=== PATIENT | female | born 1990 | race Caucasian/White ===

== ENCOUNTER 2017-08-21 06:00 | Inpatient (IN) ==
[2017-08-21] MEDS ORDERED: Famotidine 20 MG/2 ML VIAL IVP PRN (06:17)
[2017-08-21] MEDS ORDERED: Naloxone 0.4 MG/ML INJ IVP PRN ×3 (06:17→23:41)
[2017-08-21] MEDS ORDERED: Ondansetron 4 MG/2 ML VIAL IVP PRN ×2 (06:17→16:40)
[2017-08-21] MEDS ORDERED: *HR* Nalbuphine 20 MG/ML AMPUL IVP PRN (06:17)
[2017-08-21] MEDS ORDERED: Lidocaine 1% 20 ML MDV INFILT PRN (06:17)
--- NOTE | 2017-08-21 06:17 | OB/GYN History & Physical ---
Date of Encounter: 08/21/17 Time of Encounter: 06:30 Assessment and Plan (1) Rastafari ancestry Current visit: Yes Status: Acute (2) Short interval between pregnancies affecting in third trimester, antepartum Current visit: Yes Status: Acute (3) Elective induction of labor planned Current visit: Yes Status: Acute Plan: - admit to L&D - heart monitoring - reactive - CBC ordered - expectant management - plan for morel and cytotec - epidural if patient desires (4) 40 weeks gestation of Current visit: Yes Status: Acute History of Present Illness Chief complaint: induction of labor HPI: Ms. Guerra is a 27 year old female at 40+2 weeks presented to L&D for induction of labor. complicated by hx of hemorrhage, hx of extensive repair with a 8lb 14oz baby, and Rastafari, and short term interval between previous (14 mo). Reports good movement. Patient denies regular contractions, leakage of fluid, vaginal bleeding. Patient has seen multiple providers. Last office visit patient was 2cm. Denies fevers, chills, headaches, changes in vision, abdominal pain, dysuria, or edema. PNL: Blood type A neg, RPR neg, RI, HBsAg neg, HIV neg, GBS neg Past Med Surg Social Fam HX - Family History Mother Adopted: No Living Status: Still Living Hx Family Cardiac Disorders: No Hx Family Respiratory Disorders: No Hx Family Cancer: No Hx Family GI Disorders: No Hx Family Genitourinary Disorders: No Hx Family Endocrine Disorder: No Hx Family Musculoskeletal Disorders: No Hx Family Neuromuscular Disorders: No Hx Family Neurologic Disorders: No Hx Family HEENT Disorders: No Hx Family Autoimmune Disorders: No Hx Family Reproductive Disorders: No Hx Family Psychosocial Disorders: No Hx Family Medical Disorders: No Obstetrical History - Pregnancies : 5 Para: 3 Term: 3 : 0 Ab's: 0 Livin - History/Complications History/Complications: Total pregnancies 4. Total living children 3. # 1: 02/2013, normal spontaneous vaginal delivery (), 40wks, male , no complications. # 2: 08/2014, normal spontaneous vaginal delivery (), 40wks, male , no complications. # 3 03/2016, normal spontaneous vaginal delivery (), 40wks, male, no complications. Medications and Allergies Vit/Iron Fumarate/FA [ Tablet] 1 each PO DAILY 08/21/17 [ History] 3 Allergy/AdvReac Type Severity Reaction Status Date / Time No Known Allergies Allergy Verified 08/21/17 07:33 Review of System OB All systems PM: reviewed and no additional remarkable complaints except as stated Exam - Constitutional Constitutional: well developed, well nourished, no acute distress, average body habitus - HEENT HEENT: Normocephaly, Mucus Membranes Moist - Neck Neck exam: full ROM - Lungs Respiratory exam: CTAB - Cardiovascular Cardiovascular exam: RRR - Abdomen Abdomen: Present: bowel sounds normal, gravid. Absent: non tender - Extremities Extremities exam: normal capillary refill, normal inspection - Vagina Vagina: Present: normal moisture - Cervix Dilation: 1 (1-2 cm per nursing) - Uterus Uterus exam: Present: normal size - Anus/Rectum Anus/Rectum: Present: normal perianal skin Results Result Diagrams: 08/21/17 07:01 All other labs normal. - Attending Attestation I examined this patient and my medical decision-making was reviewed with the Resident Physician. I agree with the documented findings, disposition and treatment plan as described. Braden Betancur CNM
[2017-08-21 07:14] LABS: Basophils % 0.3 %; Eosinophils # 0.1 K/mcL (0.0-0.6); Hematocrit 34.4 % (35.3-44.9); Hemoglobin 11.4 g/dL (11.5-15.4); Immature Granulocytes % 1.6 % (0-4); Lymphocytes # 1.8 K/mcL (0.6-4.6); Lymphocytes % 20.4 %; Mean Corpuscular HGB Conc 33.1 g/dL (31.6-35.5); Mean Corpuscular Hemoglobin 26.8 pg (28.0-33.3); Mean Corpuscular Volume 80.9 fL (83.0-100.0); Mean Platelet Volume 10.1 fL (9.4-12.4); Monocytes # 0.7 K/mcL (0.0-1.3); Monocytes % 7.8 %; Platelet Count 243 K/mcL (140-400); Red Blood Count 4.25 M/mcL (3.82-4.97); Red Cell Distribution Width 13.9 % (11.5-14.5); Segmented Neutrophils % 68.9 %
[2017-08-21 07:57] LABS: Amphetamine Screen,Urine Negative ng/mL (Cutoff=1000); Barbiturate Screen,Urine Negative ng/mL (Cutoff=200); Benzodiazepines Screen,Urine Negative ng/mL (Cutoff=200); Cannabinoid Screen,Urine Negative ng/mL (Cutoff = 50); Cocaine Screen,Urine Negative ng/mL (Cutoff= 300); Opiate Screen,Urine Negative ng/mL (Cutoff=300); Phencyclidine Screen,Urine Negative ng/mL (Cutoff=25)
[2017-08-21] MEDS: miSOPROStol 25 MCG TABLET PO PRN ×2 (08:34→13:23)
--- NOTE | 2017-08-21 09:23 | OB Labor Progress Note ---
Date of Encounter: 08/21/17 Time of Encounter: 09:21 Labor Progress Note - Subjective Subjective: Patient resting comfortably in bed. States she can feel contractions but they are tolerable - Vital Signs Vital Signs: VSS - Cervix Cervix: 2-3/70/-1 mid position. - Heart Tones Heart Tones: 130 moderate variability with 15 x 15 accels. - [place]: Contractions irregular - Interventions Interventions: Bryson bulb with 40mL placed in cervix without difficulty. Patient and fetus tolerated well. - Plan Plan: Continue routine labor management Patient may have epidural/nubain upon request for pain control Anticipate vaginal delivery GBS negative Consider AROM /Pitocin for augmentation Patient typed and crossed for 2 units pRBCs on hold due to hx of PPH. POC per consult with Dr Colon.
--- NOTE | 2017-08-21 10:59 | Anesthesia Evaluation PreOp ---
Date of Encounter: 08/21/17 Time of Encounter: 10:56 - Past History Planned Operation: Potential MOHSEN Cardiac History: Denies any Significant Hx Pulmonary History: Denies Any Significant HX BOILER TUBE REAMER History: Denies Any Significant HX Other Medical History: Denies Any Significant HX Anesthesia History: No Prior Anesthetic Complications, Past Anesthesia (NONE, no family history of anesthesia complications) : Yes Alcohol Use: none Drug use: none Medications and Allergies Vit/Iron Fumarate/FA [ Tablet] 1 each PO DAILY 08/21/17 [ History] 3 Allergy/AdvReac Type Severity Reaction Status Date / Time No Known Allergies Allergy Verified 08/21/17 07:33 - Meds/Allergy Pre-op Review Medications Reviewed: Yes Allergies Reviewed: Yes Beta Blockers on Current Med List: No Anesthesia Results - Labs 08/21/17 07:01 Anesthesia Exam BP 122/75 P 90 T 97.5 R 18 Height: 5'3" Weight: 75kg NPO (# of Hours): 12 hrs solids 1hr clears Pain Scale: 2 Pain Scale Used: Numeric (1 - 10) - HEENT Pupil (Motor): Pupils equal Mallampati: II Teeth: Normal Oral Opening: Greater than 3 - BOILER TUBE REAMER LOC: Oriented BOILER TUBE REAMER Motor: Normal RUE, Normal LUE, Normal RLE, Normal LLE, Normal Face BOILER TUBE REAMER Sensory: Normal: RUE, LUE, RLE, LLE, Face - Cardiac Rhythm: Regular Murmur: None JVD: No Carotid Bruit: No - Pulmonary Breath Sounds: bilateral Clear Respiratory Effort: Symmetrical Anesthesia Assess/Plan ASA Score: 2 Modified Katerin Scale for Level of Consciousness: Cooperative, oriented, and tranquil Anesthetic Plan: Regional Autologous Blood: No Monitoring Plan: Standard Monitors Recovery Plan: Other
[2017-08-21] MEDS ORDERED: Ringers Solution, Lactated 1,000 ML ONE (16:14)
[2017-08-21] MEDS ORDERED: Ringers Solution, Lactated 1,000 ML IVC SCH (16:15)
--- NOTE | 2017-08-21 16:17 | OB Labor Progress Note ---
Date of Encounter: 08/21/17 Time of Encounter: 16:14 Labor Progress Note - Subjective Subjective: Patient resting in rocking chair comfortably - Vital Signs Vital Signs: VSS - Cervix Cervix: 6/70/-1 - Heart Tones Heart Tones: 140's moderate variability and 15 x 15 accels. - [place]: Contractions every 2-10 minutes - Interventions Interventions: AROM for moderate amount of clear fluid - Plan Plan: Continue routine labor management Patient may have epidural and/or nubain upon request GBS negative Consider pitocin if needed for adequate labor Anticipate vaginal delivery POC per consult with Dr Colon.
[2017-08-21] MEDS ORDERED: EPHEDrine 50 MG/ML VIAL IVP PRN (16:40)
[2017-08-21] MEDS ORDERED: Bupivacaine-MPF 0.25% 10 ML VIAL EP ONE (16:40)
[2017-08-21] MEDS ORDERED: *HR* FentaNYL (PF) 100 MCG/2 ML VIAL EP ONE (16:40)
[2017-08-21] MEDS ORDERED: Epidural Premix (fent/bupiv) 110 ML EP SCH (16:45)
[2017-08-21] MEDS ORDERED: Bupivacaine-MPF 0.25% 10 ML VIAL ONE (16:45)
[2017-08-21] MEDS ORDERED: *HR* FentaNYL (PF) 100 MCG/2 ML VIAL ONE (16:45)
[2017-08-21] MEDS ORDERED: Epidural Premix (fent/bupiv) 110 ML EP ONE (16:47)
--- NOTE | 2017-08-21 17:26 | Anesthesia Procedures ---
Date of Encounter: 08/21/17 Time of Encounter: 16:49 Procedures: Anesthesia - Epidural/Spinal Patient ID/Chart reviewed: Yes Patient examined: Yes OB Eval: Gestational age: 40 OB Eval: : 4 OB Eval: Hx Para: 3 OB Eval: Dilated at (cm): 6 OB Eval: Contractions: Non-stressed pattern Consent Obtained: Yes Supplemental Oxygen: None/Room Air Site Prep: Aseptic Technique, Sterile prep and drape, Povidone-Iodine 1% Patient position: upright Local Anesthetic: Lidocaine 1% Amount of Local Anesthetic used: 3 Touhy Needle Gauge: 18 Touhy Needle Depth (cm): 6 Catheter Depth at Skin (cm): 15 Test Dose (1.5% Lido + Epi): Volume given (mls): 3 Test Dose Result: Negative Loading Dose: 0.25% Marcaine (mls): 10 Loading Dose: Fentanyl (mcg): 100 Loading Dose Administered: Thru Catheter Infusion Med: 0.125% Bupivacaine w/ 2 mcg/ml Fentanyl Infusion Rate (mls/hr): [address]: Tegaderm Interspace Used: L4-L5 Loss of Resistance (CARLEE): Yes Blood: No CSF: No Paresthesia: No Procedure: MOHSEN placed first pass in upright position without any immediate noted complications. VSS. Vitals + FHT's: 1649 BP 121/73 P 101 R 18 1720 BP 115/76 P 92 R 16
[2017-08-21] MEDS ORDERED: Oxytocin 20 units/ LR 1000 mL 20 UNIT/1,000 ML BAG IVC ONE (19:25)
[2017-08-21] MEDS ORDERED: Oxytocin 20 units/ LR 1000 mL 20 UNIT/1,000 ML BAG IVC SCH ×2 (20:00→21:30)
[2017-08-21] MEDS ORDERED: Acetaminophen 325 MG TABLET PO PRN ×2 (21:30→23:41)
[2017-08-21] MEDS ORDERED: Ibuprofen 600 MG TABLET PO PRN ×2 (21:30→23:41)
--- NOTE | 2017-08-21 21:41 | OB/GYN Procedure Note ---
Delivery - Delivery Date: 08/21/17 Provider: Misty Betancur (Adarhs Blankenship DO PGY-1) Intrapartum events: none Delivery induction: morel, misoprostol Delivery augmentation: rupture of membranes, pitocin Delivery monitor: external FHT, external uterine Anesthesia: epidural Estimated Blood Loss: 350 - Infant (s) A Delivery Date: 08/21/17 Infant Delivery Time: 21:03 Presentation: vertex Position: CASEY Route of delivery: Gender: Male Viability: Viable Pounds: 8 Ounces: 5 Weight Gram: 3.78 kg at 1 minute: 8 at 5 mins: 9 Shoulder Dystocia: not encountered Specimens collected: cord blood Placenta: spontaneous Cord: nuchal reduced - Repair Episiotomy: none Laceration Description: Periurethral, Superficial (posterior skin) - Complications Delivery complications: none Delivery comments: of vigorous viable male infant in the CASEY position at 2103. Shoulders delivered easily. Nuchal cord x1 reduced. No meconium. No shoulder dystocia. Infant placed on mom's abdomen. Apgars 8/9 at 1 and 5 minutes. Cord double clamped and cut after pulsations ceased. Placenta delivered spontaneously at 0 appears grossly intact. 3 vessel cord. Upon perineal inspection, hemostatic periurethral/periclitoral lacerations, and superficial posterior skin laceration repaired with 4-0 vicryl. Pericare instructions given to patient. Fundus firm. Lower uterine segment was soft and due to patient's history of hemorrhage we gave methergine x1. EBL 350ml. delivery by Adarsh Blankenship DO PGY-1 and Misty ESTEVEZ. and mother stable in recovery. - Disposition Mom disposition: stable in LDR disposition: stable in LDR
[2017-08-22 06:58] LABS: Basophils % 0.1 %; Eosinophils # 0.1 K/mcL (0.0-0.6); Eosinophils % 0.4 %; Hematocrit 34.8 % (35.3-44.9); Hemoglobin 11.2 g/dL (11.5-15.4); Immature Granulocytes % 0.6 % (0-4); Lymphocytes # 1.8 K/mcL (0.6-4.6); Lymphocytes % 12.5 %; Mean Corpuscular HGB Conc 32.2 g/dL (31.6-35.5); Mean Corpuscular Hemoglobin 26.6 pg (28.0-33.3); Mean Corpuscular Volume 82.7 fL (83.0-100.0); Mean Platelet Volume 10.3 fL (9.4-12.4); Monocytes # 1.2 K/mcL (0.0-1.3); Monocytes % 8.3 %; Nucleated Red Blood Cells 0.1 /100 WBC (0); Platelet Count 261 K/mcL (140-400); Red Blood Count 4.21 M/mcL (3.82-4.97); Red Cell Distribution Width 13.8 % (11.5-14.5); Segmented Neutrophils % 78.1 %
[2017-08-22] MEDS ORDERED: Prenatal Vit/FA 1 EACH TABLET PO SCH ×2 (09:00)
--- NOTE | 2017-08-22 10:02 | Discharge Summary ---
Date of Encounter: 08/22/17 Time of Encounter: 10:00 - Discharge Diagnosis (1) Vaginal delivery Priority: Primary Status: Acute Comments: Continue routine care discharge home today follow up in 4-6 weeks (2) Breast feeding status of mother Priority: Secondary Status: Acute Comments: Lacatation support prn (3) Rh negative status during Priority: Secondary Status: Acute Comments: Both parents are RH negative (A-) and decline Rhogam evaluation Qualifiers: Trimester: unspecified trimester Qualified Code(s): O09.899 - Supervision of other high risk pregnancies, unspecified trimester - Discharge Medications Home Medications: Vit/Iron Fumarate/FA [ Tablet] 1 each PO DAILY 08/21/17 [ History] Acetaminophen [Tylenol] 650 mg PO Q6HR PRN tablet 08/22/17 [Rx] Ibuprofen [Motrin] 600 mg PO Q6HR PRN tablet 08/22/17 [Rx] Allergies/Adverse Reactions: 3 Allergy/AdvReac Type Severity Reaction Status Date / Time No Known Allergies Allergy Verified 08/21/17 07:33 Data Procedures and tests throughout hospitalization: Laboratory Tests 08/21/17 08/21/17 08/21/17 07:01 07:37 08:27 WBC 8.7 RBC 4.25 Hgb 11.4 L Hct 34.4 L MCV 80.9 L MCH 26.8 L MCHC 33.1 RDW 13.9 Plt Count 243 MPV 10.1 Immature Gran % 1.6 Seg Neutrophils % 68.9 Lymphocytes % 20.4 Monocytes % 7.8 Eosinophils % 1.0 Basophils % 0.3 Neutrophils # 6.0 Lymphocytes # 1.8 Monocytes # 0.7 Eosinophils # 0.1 Basophils # 0.0 Nucleated RBCs/100 WBC Urine Opiates Screen Negative Ur Barbiturates Screen Negative Ur Phencyclidine Scrn Negative Ur Amphetamines Screen Negative U Benzodiazepines Scrn Negative Urine Cocaine Screen Negative U Marijuana (THC) Screen Negative Blood Type A NEGATIVE Antibody Screen NEGATIVE Crossmatch See Detail 08/22/17 06:20 WBC 14.1 H D RBC 4.21 Hgb 11.2 L Hct 34.8 L MCV 82.7 L MCH 26.6 L MCHC 32.2 RDW 13.8 Plt Count 261 MPV 10.3 Immature Gran % 0.6 Seg Neutrophils % 78.1 Lymphocytes % 12.5 Monocytes % 8.3 Eosinophils % 0.4 Basophils % 0.1 Neutrophils # 11.0 H Lymphocytes # 1.8 Monocytes # 1.2 Eosinophils # 0.1 Basophils # 0.0 Nucleated RBCs/100 WBC 0.1 H Urine Opiates Screen Ur Barbiturates Screen Ur Phencyclidine Scrn Ur Amphetamines Screen U Benzodiazepines Scrn Urine Cocaine Screen U Marijuana (THC) Screen Blood Type Antibody Screen Crossmatch Labs on day of discharge: Labs from last 24 hours 08/22/17 06:20 WBC 14.1 H D RBC 4.21 Hgb 11.2 L Hct 34.8 L MCV 82.7 L MCH 26.6 L MCHC 32.2 RDW 13.8 Plt Count 261 MPV 10.3 Immature Gran % 0.6 Seg Neutrophils % 78.1 Lymphocytes % 12.5 Monocytes % 8.3 Eosinophils % 0.4 Basophils % 0.1 Neutrophils # 11.0 H Lymphocytes # 1.8 Monocytes # 1.2 Eosinophils # 0.1 Basophils # 0.0 Nucleated RBCs/100 WBC 0.1 H Date of admission: 08/21/17 06:06 Primary care physician: PCP NONE Consults: 08/21/17 21:30 Consult to Painting Trades Worker [CONS] Routine Comment: Vaginal delivery, consult needed Discharging clinician: Sarai Bridges Anticipated date of discharge: 08/22/17 - Patient Status Disposition: Home, Self-Care Condition: Good Functional capacity at discharge: independent ambulation - Discharge Instructions Follow Up With: NONE,PCP [Primary Care Provider] - Misty Betancur CNM [Advanced Practice Nurse] - - Diet and Activity Activity: increase activity as tolerated Diet: regular diet Hospital Course Reason for admission: induction of labor Delivery: Episiotomy: none Laceration: none Other procedures: none complications: none Discharge diagnosis: IUP at term delivered [place] baby: male (breast feeding) Time Attestation: Total time spent providing and/or coordinating discharge services: Time Spent: Less than 30 minutes Exam - Constitutional Vitals: Temp Pulse Resp BP Pulse Ox 98.2 F 90 16 105/63 100 08/22/17 08:00 08/22/17 08:00 08/22/17 08:00 08/22/17 08:00 08/22/17 08:00 General appearance IM: A&O X 3, pleasant, answers questions appropriately - Respiratory Respiratory exam: Present: CTAB - Cardiovascular Cardiovascular exam IM: Present: RRR, +S1, +S2 - GI/Abdominal GI/Abdominal exam IM: normal bowel sounds - Uterine Tone: Firm Uterus Position: 1 Finger Below Umbilicus, Midline - Extremities Exam Extremities exam IM: Present: full ROM, normal capillary refill, normal inspection - Neurological Exam Neurological exam: alert, oriented X3, reflexes normal
[2017-08-22] MEDS ORDERED: Methylergonovine 0.2 MG/ML AMPUL IM ONE (22:07)
[2017-08-22 23:10] VITALS: BP 104/67
== END 2017-08-22 22:08 | disposition home or self-care (01) | DRG 775 ==
LOC: 1NENULAB 06:06 → 1NENUOBS 23:38
PROVIDERS: ADMIT Advanced Practice Midwife; ATTEND Advanced Practice Midwife

== ENCOUNTER 2019-07-07 07:55 | Inpatient (IN) ==
[2019-07-07] MEDS ORDERED: Naloxone 0.4 MG/ML INJ IVP PRN ×2 (07:59→14:47)
[2019-07-07] MEDS ORDERED: Metoclopramide 10 MG/2 ML VIAL IVP PRN (07:59)
[2019-07-07] MEDS ORDERED: Famotidine 20 MG/2 ML VIAL IVP PRN (07:59)
[2019-07-07] MEDS ORDERED: Azithromycin 500 MG in 0.9 % Sodium Chloride 250 ML IVPB ONE (07:59)
[2019-07-07] MEDS ORDERED: *HR* Nalbuphine 10 MG/ML AMPUL IVP PRN (07:59)
[2019-07-07] MEDS ORDERED: miSOPROStol 25 MCG TABLET PO PRN (07:59)
[2019-07-07] MEDS ORDERED: Ondansetron 4 MG/2 ML VIAL IVP PRN ×2 (07:59→14:47)
[2019-07-07] MEDS ORDERED: Lidocaine 1% 20 ML MDV INFILT PRN (07:59)
[2019-07-07] MEDS ORDERED: Oxytocin 20 units/ LR 1000 mL 20 UNIT/1,000 ML BAG IVC SCH ×2 (08:00→22:21)
[2019-07-07] MEDS: Ringers Solution, Lactated 1,000 ML IVC SCH ×2 (09:14→14:48)
[2019-07-07 09:28] LABS: Amphetamine Screen,Urine Negative ng/mL (Cutoff=1000); Barbiturate Screen,Urine Negative ng/mL (Cutoff=200); Benzodiazepines Screen,Urine Negative ng/mL (Cutoff=200); Cannabinoid Screen,Urine Negative ng/mL (Cutoff = 50); Cocaine Screen,Urine Negative ng/mL (Cutoff= 300); Opiate Screen,Urine Negative ng/mL (Cutoff=300); Phencyclidine Screen,Urine Negative ng/mL (Cutoff=25)
[2019-07-07 09:33] LABS: Basophils % 0.4 %; Eosinophils % 0.6 %; Hematocrit 34.7 % (35.3-44.9); Hemoglobin 12.1 g/dL (11.5-15.4); Immature Granulocytes % 1.3 % (0-4); Lymphocytes # 1.3 K/mcL (0.6-4.6); Lymphocytes % 18.4 %; Mean Corpuscular HGB Conc 34.9 g/dL (31.6-35.5); Mean Corpuscular Hemoglobin 29.1 pg (28.0-33.3); Mean Corpuscular Volume 83.4 fL (83.0-100.0); Monocytes # 0.4 K/mcL (0.0-1.3); Neutrophils # 5.3 K/mcL (1.6-8.9); Platelet Count 233 K/mcL (140-400); Red Blood Count 4.16 M/mcL (3.82-4.97); Red Cell Distribution Width 13.1 % (11.5-14.5); Segmented Neutrophils % 73.3 %; White Blood Count 7.2 K/mcL (4.3-11.1)
[2019-07-07] MEDS ORDERED: *HR* FentaNYL (PF) 100 MCG/2 ML VIAL EP ONE (14:47)
[2019-07-07] MEDS ORDERED: EPHEDrine 50 MG/ML VIAL IVP PRN (14:47)
[2019-07-07] MEDS ORDERED: Ropivacaine/PF 0.2% 20 ML VIAL EP ONE (14:47)
[2019-07-07] MEDS ORDERED: Ropivacaine/PF 0.2% 20 ML VIAL ONE (14:56)
[2019-07-07] MEDS ORDERED: *HR* FentaNYL (PF) 100 MCG/2 ML VIAL ONE (14:57)
[2019-07-07] MEDS ORDERED: Epidural Premix (fent/bupiv) 110 ML EP SCH (15:00)
[2019-07-07] MEDS ORDERED: Acetaminophen 325 MG TABLET PO PRN (22:21)
[2019-07-07] MEDS ORDERED: Lanolin 7 G OINT...G. TP PRN (22:21)
[2019-07-07] MEDS ORDERED: Ibuprofen 600 MG TABLET PO PRN (22:21)
[2019-07-07] MEDS ORDERED: *HR* HYDROcodone/Acet 5/325 mg TABLET PO PRN (22:21)
[2019-07-07] MEDS ORDERED: Benzocaine/Menthol 56 GM AEROSOL SPRAY TP PRN (22:21)
[2019-07-08 07:54] VITALS: BP 101/65
[2019-07-08] MEDS ORDERED: Prenatal Vit/FA 1 EACH TABLET PO SCH (09:00)
== END 2019-07-08 17:56 | disposition home or self-care (01) | DRG 807 ==
LOC: 1NENULAB 07:55 → 1NENUOBS 22:21
PROVIDERS: ADMIT Advanced Practice Midwife; ATTEND Advanced Practice Midwife

== ENCOUNTER 2020-12-24 06:12 | Inpatient (IN) ==
[2020-12-24] MEDS ORDERED: Naloxone 0.4 MG/ML INJ IVP PRN (06:18)
[2020-12-24] MEDS ORDERED: Azithromycin 500 MG in 0.9 % Sodium Chloride 250 ML IVPB ONE (06:18)
[2020-12-24] MEDS ORDERED: Metoclopramide 10 MG/2 ML VIAL IVP PRN (06:18)
[2020-12-24] MEDS ORDERED: Famotidine 20 MG/2 ML VIAL IVP PRN (06:18)
[2020-12-24] MEDS ORDERED: Ondansetron 4 MG/2 ML VIAL IVP PRN (06:18)
[2020-12-24] MEDS ORDERED: *HR* Nalbuphine 10 MG/ML AMPUL IV PRN (06:18)
[2020-12-24] MEDS ORDERED: miSOPROStoL 25 MCG TABLET VG PRN (06:21)
[2020-12-24] MEDS ORDERED: Oxytocin 20 units/ LR 1000 mL 20 UNIT/1,000 ML BAG IVC SCH ×2 (06:30→19:05)
[2020-12-24 06:59] LABS: Basophils % 0.4 %; Eosinophils # 0.1 K/mcL (0.0-0.6); Eosinophils % 1.6 %; Hematocrit 36.9 % (35.3-44.9); Hemoglobin 12.2 g/dL (11.5-15.4); Lymphocytes # 1.6 K/mcL (0.6-4.6); Lymphocytes % 23.1 %; Mean Corpuscular HGB Conc 33.1 g/dL (31.6-35.5); Mean Corpuscular Hemoglobin 28.8 pg (28.0-33.3); Mean Corpuscular Volume 87.2 fL (83.0-100.0); Mean Platelet Volume 9.6 fL (9.4-12.4); Monocytes # 0.6 K/mcL (0.0-1.3); Neutrophils # 4.4 K/mcL (1.6-8.9); Platelet Count 233 K/mcL (140-400); Red Blood Count 4.23 M/mcL (3.82-4.97); Red Cell Distribution Width 14.3 % (11.5-14.5); Segmented Neutrophils % 64.9 %; White Blood Count 6.8 K/mcL (4.3-11.1)
[2020-12-24] MEDS: Ringers Solution, Lactated 1,000 ML IVC SCH ×2 (07:48→15:28)
[2020-12-24 07:59] LABS: Adenovirus Not Detected (Not Detect); Coronavirus 229E Not Detected (Not Detect); Coronavirus HKU1 Not Detected (Not Detect); Coronavirus NL63 Not Detected (Not Detect)
[2020-12-24 08:00] LABS: Bordetella Pertussis Not Detected (Not Detect); Chlamydophila pneumoniae Not Detected (Not Detect); Coronavirus OC43 Not Detected (Not Detect); Human Metapneumovirus Not Detected (Not Detect); Human Rhinovirus/Enterovirus DETECTED (Not Detect); Influenza A Subtype 2009 H1 Not Detected (Not Detect); Influenza B Not Detected (Not Detect); Mycoplasma pneumoniae Not Detected (Not Detect); Parainfluenza Virus 1 Not Detected (Not Detect); Parainfluenza Virus 2 Not Detected (Not Detect); Parainfluenza Virus 3 Not Detected (Not Detect); Parainfluenza Virus 4 Not Detected (Not Detect); Respiratory Syncytial Virus Not Detected (Not Detect); SARS-CoV-2 Not Detected (Not Detect)
[2020-12-24 09:21] LABS: Amphetamine Screen,Urine Negative ng/mL (Cutoff=1000); Barbiturate Screen,Urine Negative ng/mL (Cutoff=200); Benzodiazepines Screen,Urine Negative ng/mL (Cutoff=200); Cannabinoid Screen,Urine Negative ng/mL (Cutoff = 50); Cocaine Screen,Urine Negative ng/mL (Cutoff= 300); Opiate Screen,Urine Negative ng/mL (Cutoff=300); Phencyclidine Screen,Urine Negative ng/mL (Cutoff=25)
[2020-12-24] MEDS ORDERED: *HR* FentaNYL (PF) 100 MCG/2 ML VIAL EP ONE (15:21)
[2020-12-24] MEDS ORDERED: Ropivacaine/PF 0.2% 20 ML VIAL EP ONE (15:21)
[2020-12-24] MEDS ORDERED: EPHEDrine 50 MG/ML VIAL IVP PRN (15:21)
[2020-12-24] MEDS ORDERED: Ropivacaine/PF 0.2% 20 ML VIAL ONE (15:24)
[2020-12-24] MEDS ORDERED: *HR* FentaNYL (PF) 100 MCG/2 ML VIAL ONE (15:24)
[2020-12-24] MEDS ORDERED: Epidural Premix (fent/bupiv) 110 ML EP ONE (15:26)
[2020-12-24] MEDS ORDERED: Epidural Premix (fent/bupiv) 110 ML EP SCH (15:30)
[2020-12-24] MEDS ORDERED: Rho Immune Globulin 1,500 UNIT SYRINGE IM PRN (19:05)
[2020-12-24] MEDS ORDERED: Acetaminophen 325 MG TABLET PO PRN (19:05)
[2020-12-24] MEDS ORDERED: *HR* HYDROcodone/Acet 5/325 mg TABLET PO PRN (19:05)
[2020-12-24] MEDS ORDERED: Benzocaine/Menthol 56 GM AEROSOL SPRAY TP PRN (19:05)
[2020-12-24] MEDS ORDERED: Ibuprofen 600 MG TABLET PO PRN (19:05)
[2020-12-24] MEDS ORDERED: Lanolin 7 G OINT...G. TP PRN (19:05)
[2020-12-25 08:26] VITALS: BP 104/72
[2020-12-25] MEDS ORDERED: Prenatal Vit/FA 1 EACH TABLET PO SCH (09:00)
== END 2020-12-25 18:59 | disposition home or self-care (01) | DRG 807 ==
LOC: 1NENULAB 06:12 → 1NENUOBS 20:45 → UNDODISIN 12-25 12:45
PROVIDERS: ADMIT Advanced Practice Midwife; ATTEND Advanced Practice Midwife